=== PATIENT | female | born 1975 | race Caucasian/White ===

== ENCOUNTER → 2016-12-22 | Outpatient (CLI) | payer OTHER ==
--- NOTE | 2016-12-22 17:44 | WOMENS IMAGING REPORT ---
EXAM DESCRIPTION: 3D SCREENING MAMMO BILAT COMPLETED DATE/TIME: 12/22/2016 8:16 am REASON FOR STUDY: ROUTINE BILATERAL SCREENING;Z12.31 Z12.31 ENCNTR SCREEN MAMMOGRAM FOR MALIGNANT N EOPLASM OF ALEJANDRA COMPARISON: 08/07/2015 and 01/26/2014. TECHNIQUE: Standard craniocaudal and mediolateral oblique views of each breast recorded using digita l acquisition and breast tomosynthesis. LIMITATIONS: None. FINDINGS: No masses, calcifications or architectural distortion. No areas of suspicion. Read with the assistance of CAD. .[facility] - R2 Cenova Version 1.3 .[facility] Imaging - R2 Cenova Version 1.3 .[facility] - R2 Cenova Version 2.4 [place] [place] Cenova Version 2.4 .[facility] - R2 Managed Care Liaison Version 9.2 IMPRESSION: NORMAL MAMMOGRAM. BIRADS 1. BREAST DENSITY: c. The breasts are heterogeneously dense, which may obscure small masses. BIRAD: 1 NEGATIVE RECOMMENDATION: ROUTINE SCREENING COMMENT: The patient has been notified of the results by letter per [place] requirements. Additional no tification policies are in place for contacting patient with suspicious or incomplete findings. Quality ID #[id number]: The [employer] recommends an annual screening mammogram for women aged 40 years or over. This facility utilizes a reminder system to ensure that all patients receive reminder letters, and/or direct phone calls for appointments. This includes reminders for routine scr eening mammograms, diagnostic mammograms, or other Breast Imaging Interventions when appropriate. Th is patient will be placed in the appropriate reminder system. The [employer] (ACR) has developed recommendations for screening MRI of the breast s in certain patient populations, to be used in conjunction with mammography. Breast MRI surveillanc e may be appropriate for women with more than 20% lifetime risk of developing breast cancer as deter mined by genetic testing, significant family history of the disease, or history of mantle radiation f or Hodgkins Disease. ACR Practice Guidelines 2008. DBT Technology DBT is a type of tomographic mammography. With conventional mammography, overlapping breast tissue ma y make lesions difficult to detect, even with good compression. DBT uses an x-ray tube that rotates a round the breast, taking images at different angles. These images are then combined to create thin sl ices of the breast that the radiologist can view as a 3D reconstruction. The Gyst unit can perform full-field digital mammograms (2D imaging); or DBT (3D imaging); or both, in a combination mode that quickly performs both the mammogram and the tomosynthesis scan while the breast is still compressed. PQRS 6045F: Fluoroscopic imaging is not utilized for breast tomosynthesis. TECHNICAL DOCUMENTATION: FINDING NUMBER: (1) ASSESSMENT: (1) JOB ID: [id number] [employer]- All Rights Reserved
== END ==
LOC: WI 07:13
PROVIDERS: ATTEND Nurse Practitioner Primary Care
DX: Z12.31 Encounter for screening mammogram for malignant neoplasm of breast (principal); Z80.3 Family history of malignant neoplasm of breast
CPT/HCPCS: 77063; G0202; 77067

== ENCOUNTER 2017-01-19 12:31 | Emergency (ER) | payer OTHER ==
--- NOTE | 2017-01-19 13:13 | ER Document Report ---
ED Medical Screen (RME) - General Chief Complaint: Palpitations Stated Complaint: CHEST PAIN Time Seen by Provider: 01/19/17 13:12 Notes: Patient had an episode of palpitations this morning that were accompanied by dizziness chest pressure and some mild shortness of breath. Patient states she feels back to normal now. She denies that she was having any type of stress or anxiety this morning when this event occurred. She has had palpitations in the past but has never had a Holter monitor or cardiac evaluation. TRAVEL OUTSIDE OF THE [place] IN LAST 30 DAYS: No - Related Data Allergies/Adverse Reactions: Iodinated Contrast- Oral and IV Dye [IV Dye, Iodine Containing] Allergy ( Verified 01/19/17 12:48) Penicillins Allergy (Verified 01/19/17 12:48) Past Medical History - Social History Chew tobacco use (# tins/day): No Frequency of alcohol use: None Drug Abuse: None Renal/ Medical History: Denies: Hx Peritoneal Dialysis GI Medical History: Reports: Hx Gastroesophageal Reflux Disease Psychiatric Medical History: Reports: Hx Depression Physical Exam - Vital signs Vitals: Temp Pulse Resp BP Pulse Ox 98.4 F 86 16 141/82 H 100 01/19/17 12:48 01/19/17 12:48 01/19/17 12:48 01/19/17 12:48 01/19/17 12:48 Course - Vital Signs Vital signs: Temp Pulse Resp BP Pulse Ox 98.4 F 86 16 141/82 H 100 01/19/17 12:48 01/19/17 12:48 01/19/17 12:48 01/19/17 12:48 01/19/17 12:48
[2017-01-19 13:39] LABS: ABSOLUTE EOSINOPHILS # (AUTO) 0.1 10^3/uL (0.0-0.6); ABSOLUTE LYMPHOCYTES (AUTO) 1.6 10^3/uL (0.5-4.7); ABSOLUTE MONOCYTES (AUTO) 0.4 10^3/uL (0.1-1.4); ABSOLUTE NEUT (AUTO) 5.2 10^3/uL (1.7-8.2); BASOPHILS % (AUTO) 0.6 % (0-2); EOSINOPHILS % (AUTO) 1.1 % (0-6); HEMATOCRIT 41.4 % (36.0-47.0); HEMOGLOBIN 14.3 g/dL (12.0-15.5); HGB HCT DIFFERENCE 1.5; MEAN CORPUSCULAR HGB CONC 34.5 g/dL (32.0-36.0); MEAN CORPUSCULAR VOLUME 96 fl (80-97); MONOCYTES % (AUTO) 5.2 % (3-13); RED BLOOD COUNT 4.33 10^6/uL (3.72-5.28); RED CELL DISTRIBUTION WIDTH 12.5 % (11.5-14.0); SEGMENTED NEUTROPHILS % (AUTO) 71.1 % (42-78); WHITE BLOOD COUNT 7.3 10^3/uL (4.0-10.5)
[2017-01-19 13:53] LABS: APPEARANCE,URINE CLEAR; BILIRUBIN,URINE NEGATIVE (NEGATIVE); GLUCOSE, URINE NEGATIVE (NEGATIVE); KETONES,URINE NEGATIVE (NEGATIVE); LEUKOCYTE ESTERASE,URINE NEGATIVE (NEGATIVE); NITRITE,URINE NEGATIVE (NEGATIVE); PROTEIN,URINE NEGATIVE (NEGATIVE); URINE SPECIFIC GRAVITY 1.011; UROBILINOGEN,URINE NEGATIVE mg/dL (<2.0)
--- NOTE | 2017-01-19 14:03 | ER Document Report ---
ED Cardiac - General Chief Complaint: Palpitations Stated Complaint: CHEST PAIN Time Seen by Provider: 01/19/17 13:12 Mode of Arrival: Ambulatory Information source: Patient Notes: Pt is a 41 year old female who presents to the ER today for palpitations and lightheadedness that occurred today while she was just sitting and talking on the phone. She states that these have been going on for a long time, and that her primary care provider has discussed wearing a Holter monitor but it has not happened yet. She denies any chest pain, shortness of breath or nausea during this time. She states that she felt like she was "going to black out" but did not. She denies headache, blurred vision. She states the palpitations have resolved at this time. TRAVEL OUTSIDE OF THE [place] IN LAST 30 DAYS: No - Related Data Allergies/Adverse Reactions: Iodinated Contrast- Oral and IV Dye [IV Dye, Iodine Containing] Allergy ( Verified 01/19/17 12:48) Penicillins Allergy (Verified 01/19/17 12:48) Past Medical History - General Information source: Patient - Social History Smoking Status: Never Smoker Chew tobacco use (# tins/day): No Frequency of alcohol use: None Drug Abuse: None Family History: Reviewed & Not Pertinent Renal/ Medical History: Denies: Hx Peritoneal Dialysis GI Medical History: Reports: Hx Gastroesophageal Reflux Disease Psychiatric Medical History: Reports: Hx Depression Review of Systems - Review of Systems Constitutional: No symptoms reported EENT: No symptoms reported Cardiovascular: See HPI Respiratory: No symptoms reported Gastrointestinal: No symptoms reported Genitourinary: No symptoms reported Female Genitourinary: No symptoms reported Musculoskeletal: No symptoms reported Skin: No symptoms reported Hematologic/Lymphatic: No symptoms reported Neurological/Psychological: No symptoms reported Physical Exam - Vital signs Vitals: Temp Pulse Resp BP Pulse Ox 98.4 F 86 16 141/82 H 100 01/19/17 12:48 01/19/17 12:48 01/19/17 12:48 01/19/17 12:48 01/19/17 12:48 - Notes Notes: PHYSICAL EXAMINATION: GENERAL: Well-appearing and in no acute distress. HEAD: Atraumatic, normocephalic. EYES: Pupils equal round and reactive to light, extraocular movements intact, sclera anicteric, conjunctiva are normal. NECK: Normal range of motion, supple without lymphadenopathy LUNGS: CTAB and equal. No wheezes rales or rhonchi. HEART: Regular rate and rhythm without murmurs ABDOMEN: Soft, no tenderness. No guarding, no rebound BACK: no vertebral tenderness, normal ROM GI/: no CVA tenderness EXTREMITIES: Normal range of motion, no pitting edema. No cyanosis. NEUROLOGICAL: Cranial nerves grossly intact. Normal sensory/motor exams. PSYCH: Normal mood, normal affect. SKIN: Warm, Dry, normal turgor, no rashes or lesions noted Course - Re-evaluation Re-evalutation: 01/19/17 14:35 Patient feels fine on exam, lab work is unremarkable today including a normal cardiac workup with normal cardiac enzymes. EKG reveals a normal sinus rhythm at 68 bpm without evidence of ischemia or abnormality. Patient was fitted for 24 hour Holter monitor and Holter monitor was placed in the emergency department. - Vital Signs Vital signs: Temp Pulse Resp BP Pulse Ox 98.4 F 86 16 141/82 H 100 01/19/17 12:48 01/19/17 12:48 01/19/17 12:48 01/19/17 12:48 01/19/17 12:48 - Laboratory Result Diagrams: 01/19/17 13:20 01/19/17 13:20 Laboratory results interpreted by me: 01/19/17 13:20 Total Protein 6.2 L Discharge - Discharge Clinical Impression: Heart palpitations, Lightheadedness Condition: Stable Disposition: HOME, SELF-CARE Instructions: Palpitations (Irregular or Rapid Heartrate) ([facility]) Additional Instructions: Return in 24 hours to get your Holter monitor taken off. Return immediately for any new or worsening symptoms. Follow up with primary care provider, call tomorrow to make followup appointment. Forms: Return to Work
[2017-01-19 14:04] LABS: ALANINE AMINOTRANSFERASE 24 U/L (9-52); ALBUMIN 3.8 g/dL (3.5-5.0); ALKALINE PHOSPHATASE 67 U/L (38-126); ANION GAP 8 (5-19); ASPARTATE AMINO TRANSFERASE 17 U/L (14-36); BILIRUBIN,DIRECT 0.3 mg/dL (0.0-0.4); BILIRUBIN,TOTAL 0.4 mg/dL (0.2-1.3); BLOOD UREA NITROGEN 10 mg/dL (7-20); CALCIUM 9.1 mg/dL (8.4-10.2); CARBON DIOXIDE 29 mmol/L (22-30); CHLORIDE 104 mmol/L (98-107); CREATININE RESULT 0.57 mg/dL (0.52-1.25); GLUCOSE 83 mg/dL (75-110); POTASSIUM 4.2 mmol/L (3.6-5.0); SODIUM 140.6 mmol/L (137-145); TOTAL PROTEIN 6.2 g/dL (6.3-8.2)
[2017-01-19 15:14] VITALS: BP 128/78
--- NOTE | 2017-01-19 23:22 | EKG REPORT ---
SEVERITY:- NORMAL ECG - SINUS RHYTHM : Confirmed by: Beverly Grey 19-Jan-2017 23:21:46
== END 2017-01-19 15:13 | disposition home or self-care (01) ==
LOC: ER 12:31 → EDSTATUS 15:31
DX: R00.2 Palpitations (principal); R42 Dizziness and giddiness; Z91.041 Radiographic dye allergy status; Z88.0 Allergy status to penicillin
CPT/HCPCS: 36415; 80053; 81001; 81025; 83735; 85025; 93005; 93010; 93225; 99284

== ENCOUNTER → 2018-02-16 | Outpatient (CLI) | payer OTHER ==
--- NOTE | 2018-02-16 10:08 | WOMENS IMAGING REPORT ---
EXAM DESCRIPTION: 3D DX MAMMO BILAT; U/S BREAST UNILAT LIMITED COMPLETED DATE/TIME: 02/16/2018 8:48 am; 02/16/2018 9:12 am REASON FOR STUDY: DIAGNOSTIC BILATERAL MAMMO/N63.13, N64; N63.13 RIGHT BREAST LUMP N63.13 UNSPECIFI ED LUMP IN THE RIGHT BREAST, LOWER OUTER DAVID N64.9 DISORDER OF BREAST, UNSPECIFIED COMPARISON: 2009, 2013, 2015, 2016 TECHNIQUE: Standard craniocaudal and mediolateral oblique views of each breast recorded using digita l acquisition and breast tomosynthesis. True lateral and cone compression views right breast. LIMITATIONS: None. FINDINGS: RIGHT BREAST MASSES: No suspicious masses. CALCIFICATIONS: No new or suspicious calcifications. ARCHITECTURAL DISTORTION: None. DEVELOPING DENSITY: None. ASYMMETRY: None noted. OTHER: No other significant findings. LEFT BREAST MASSES: No suspicious masses. CALCIFICATIONS: No new or suspicious calcifications. ARCHITECTURAL DISTORTION: None. DEVELOPING DENSITY: None. ASYMMETRY: None noted. OTHER: No other significant finding. Read with the assistance of CAD: .[facility] - R2 Cenova Version 1.3 .[facility] Imaging - R2 Cenova Version 1.3 .[facility] - R2 Cenova Version 2.4 .[facility] [place] - R2 Cenova Version 2.4 .[facility] - R2 Machinist Mate Version 9.2 Ultrasound of the right breast was normal. IMPRESSION: No evidence of malignancy. BREAST DENSITY: b. There are scattered areas of fibroglandular density. BIRAD: 1 Negative. RECOMMENDATION: RECOMMENDED FOLLOW UP: Birads 1 or 2: No breast imaging finding to explain the patie nt's presenting complaint. Further intervention should be based on the degree of clinical suspicion. SPECIFIC INTERVENTION/IMAGING/CONSULTATION RECOMMENDED:No additional intervention/ imaging/consultati on needed at this time. COMMUNICATION:The imaging findings were not discussed with the patient. Her referring provider has be en notified of the findings. COMMENT: The patient has been notified of the results by letter per MQSA requirements. Additional no tification policies are in place for contacting patient with suspicious or incomplete findings. Quality ID #[id number]: The [employer] recommends an annual screening mammogram for women aged 40 years or over. This facility utilizes a reminder system to ensure that all patients receive reminder letters, and/or direct phone calls for appointments. This includes reminders for routine scr eening mammograms, diagnostic mammograms, or other Breast Imaging Interventions when appropriate. Th is patient will be placed in the appropriate reminder system. The [employer] (ACR) has developed recommendations for screening MRI of the breast s in certain patient populations, to be used in conjunction with mammography. Breast MRI surveillanc e may be appropriate for women with more than 20% lifetime risk of developing breast cancer as deter mined by genetic testing, significant family history of the disease, or history of mantle radiation f or Hodgkins Disease. ACR Practice Guidelines 2008. DBT Technology DBT is a type of tomographic mammography. With conventional mammography, overlapping breast tissue ma y make lesions difficult to detect, even with good compression. DBT uses an x-ray tube that rotates a round the breast, taking images at different angles. These images are then combined to create thin sl ices of the breast that the radiologist can view as a 3D reconstruction. The Yieldr unit can perform full-field digital mammograms (2D imaging); or DBT (3D imaging); or both, in a combination mode that quickly performs both the mammogram and the tomosynthesis scan while the breast is still compressed. PQRS 6045F: Fluoroscopic imaging is not utilized for breast tomosynthesis. TECHNICAL DOCUMENTATION: FINDING NUMBER: (1) ASSESSMENT: (1) JOB ID: [id number] [employer]- All Rights Reserved Reading location - IP/workstation name: [email or web address]
--- NOTE | 2018-02-16 10:08 | WOMENS IMAGING REPORT ---
EXAM DESCRIPTION: 3D DX MAMMO BILAT; U/S BREAST UNILAT LIMITED COMPLETED DATE/TIME: 02/16/2018 8:48 am; 02/16/2018 9:12 am REASON FOR STUDY: DIAGNOSTIC BILATERAL MAMMO/N63.13, N64; N63.13 RIGHT BREAST LUMP N63.13 UNSPECIFI ED LUMP IN THE RIGHT BREAST, LOWER OUTER DAVID N64.9 DISORDER OF BREAST, UNSPECIFIED COMPARISON: 2009, 2013, 2015, 2016 TECHNIQUE: Standard craniocaudal and mediolateral oblique views of each breast recorded using digita l acquisition and breast tomosynthesis. True lateral and cone compression views right breast. LIMITATIONS: None. FINDINGS: RIGHT BREAST MASSES: No suspicious masses. CALCIFICATIONS: No new or suspicious calcifications. ARCHITECTURAL DISTORTION: None. DEVELOPING DENSITY: None. ASYMMETRY: None noted. OTHER: No other significant findings. LEFT BREAST MASSES: No suspicious masses. CALCIFICATIONS: No new or suspicious calcifications. ARCHITECTURAL DISTORTION: None. DEVELOPING DENSITY: None. ASYMMETRY: None noted. OTHER: No other significant finding. Read with the assistance of CAD: .[facility] - R2 Cenova Version 1.3 .[facility] Imaging - R2 Cenova Version 1.3 .[facility] - R2 Cenova Version 2.4 .[facility] [place] - R2 Cenova Version 2.4 .[facility] - R2 [employer]eller Version 9.2 Ultrasound of the right breast was normal. IMPRESSION: No evidence of malignancy. BREAST DENSITY: b. There are scattered areas of fibroglandular density. BIRAD: 1 Negative. RECOMMENDATION: RECOMMENDED FOLLOW UP: Birads 1 or 2: No breast imaging finding to explain the patie nt's presenting complaint. Further intervention should be based on the degree of clinical suspicion. SPECIFIC INTERVENTION/IMAGING/CONSULTATION RECOMMENDED:No additional intervention/ imaging/consultati on needed at this time. COMMUNICATION:The imaging findings were not discussed with the patient. Her referring provider has be en notified of the findings. COMMENT: The patient has been notified of the results by letter per MQSA requirements. Additional no tification policies are in place for contacting patient with suspicious or incomplete findings. Quality ID #225: The [employer] recommends an annual screening mammogram for women aged 40 years or over. This facility utilizes a reminder system to ensure that all patients receive reminder letters, and/or direct phone calls for appointments. This includes reminders for routine scr eening mammograms, diagnostic mammograms, or other Breast Imaging Interventions when appropriate. Th is patient will be placed in the appropriate reminder system. The [employer] (ACR) has developed recommendations for screening MRI of the breast s in certain patient populations, to be used in conjunction with mammography. Breast MRI surveillanc e may be appropriate for women with more than 20% lifetime risk of developing breast cancer as deter mined by genetic testing, significant family history of the disease, or history of mantle radiation f or Hodgkins Disease. ACR Practice Guidelines 2008. DBT Technology DBT is a type of tomographic mammography. With conventional mammography, overlapping breast tissue ma y make lesions difficult to detect, even with good compression. DBT uses an x-ray tube that rotates a round the breast, taking images at different angles. These images are then combined to create thin sl ices of the breast that the radiologist can view as a 3D reconstruction. The Trutap unit can perform full-field digital mammograms (2D imaging); or DBT (3D imaging); or both, in a combination mode that quickly performs both the mammogram and the tomosynthesis scan while the breast is still compressed. PQRS 6045F: Fluoroscopic imaging is not utilized for breast tomosynthesis. TECHNICAL DOCUMENTATION: FINDING NUMBER: (1) ASSESSMENT: (1) JOB ID: [id number] [employer]- All Rights Reserved Reading location - IP/workstation name: [email or web address]
== END ==
LOC: WI 07:52
PROVIDERS: ATTEND Nurse Practitioner Primary Care
DX: N63.13 Unspecified lump in the right breast, lower outer quadrant (principal); N64.9 Disorder of breast, unspecified; Z80.3 Family history of malignant neoplasm of breast; N64.4 Mastodynia
CPT/HCPCS: 76642; 77066; G0279; 77062

== ENCOUNTER → 2019-11-17 | Outpatient (CLI) | payer OTHER ==
--- NOTE | 2019-11-17 14:33 | WOMENS IMAGING REPORT ---
EXAM DESCRIPTION: 3D SCREENING MAMMO BILAT IMAGES COMPLETED DATE/TIME: 11/17/2019 8:42 am REASON FOR STUDY: Z12.31 ENCOUNTER FOR SCREENING MAMMOGRAM FOR MALIGNANT NEOPLASM OF BREAST Z12.31 ENCNTR SCREEN MAMMOGRAM FOR MALIGNANT NEOPLASM OF ALEJANDRA COMPARISON: 02/16/2018, 12/22/2016, 08/07/2015 EXAM PARAMETERS: Views: Standard craniocaudal and mediolateral oblique views of each breast recorded using digital acquisition and breast tomosynthesis. Read with the assistance of CAD. .[facility] - R2 Medical Record Retrieval Specialist Version 9.2 LIMITATIONS: None. FINDINGS: No suspicious masses, suspicious calcifications or architectural distortion. No areas of c oncern. IMPRESSION: NEGATIVE MAMMOGRAM. BIRADS 1. BREAST DENSITY: c. The breasts are heterogeneously dense, which may obscure small masses. BIRAD: ASSESSMENT: 1 NEGATIVE RECOMMENDATION: ROUTINE SCREENING COMMENT: The patient has been notified of the results by letter per MQSA requirements. Additional no tification policies are in place for contacting patient with suspicious or incomplete findings. Quality ID #[id number]: The [employer] recommends an annual screening mammogram for women aged 40 years or over. This facility utilizes a reminder system to ensure that all patients receive reminder letters, and/or direct phone calls for appointments. This includes reminders for routine scr eening mammograms, diagnostic mammograms, or other Breast Imaging Interventions when appropriate. Th is patient will be placed in the appropriate reminder system. TECHNICAL DOCUMENTATION: FINDING NUMBER: (1) ASSESSMENT: (1) JOB ID: [id number] [employer]- All Rights Reserved Reading location - IP/workstation name: [email or web address]
== END ==
LOC: WI 08:15
PROVIDERS: ATTEND Nurse Practitioner Primary Care
DX: Z12.31 Encounter for screening mammogram for malignant neoplasm of breast (principal); Z80.3 Family history of malignant neoplasm of breast
CPT/HCPCS: 77063; 77067